=== PATIENT | female | born 1960 | race Caucasian/White ===

== ENCOUNTER 2019-04-27 12:02 | Inpatient (IN) ==
[2019-04-27] MEDS ORDERED: Naloxone 0.4 MG/ML INJ IVP PRN (17:56)
[2019-04-27] MEDS ORDERED: *HR* Warfarin 7.5 MG TABLET PO ONE (18:41)
[2019-04-27] MEDS ORDERED: Ondansetron 4 MG/2 ML VIAL IVP PRN (18:44)
[2019-04-27] MEDS ORDERED: Acetaminophen 325 MG TABLET PO PRN (18:44)
[2019-04-27] MEDS ORDERED: Metoprolol XL (24 HR) Succ 50 MG TAB.ER.24H PO SCH ×2 (18:45→19:00)
[2019-04-27] MEDS ORDERED: Amiodarone Premix 360 MG/200 ML BAG IVC SCH (18:45)
[2019-04-27] MEDS ORDERED: Enoxaparin Weight Dosing SQ SCH (19:00)
[2019-04-27] MEDS ORDERED: Furosemide 40 MG/4 ML VIAL IVP ONE (19:01)
[2019-04-27] MEDS ORDERED: Ipratropium/Albuterol Neb 3 ML ONE (19:27)
[2019-04-27] MEDS ORDERED: Levalbuterol Neb 0.63 MG/3 ML ONE (19:28)
[2019-04-27] MEDS ORDERED: Amiodarone Premix 360 MG/200 ML BAG IVC ONE (19:34)
[2019-04-27 20:25] LABS: Basophils % 0.3 %; Immature Granulocytes % 3.9 % (0-4); Lymphocytes % 5.7 %; Mean Platelet Volume 10.4 fL (9.4-12.4)
[2019-04-27 20:26] LABS: Basophils # 0.1 K/mcL (0.0-0.2); Hematocrit 42.5 % (35.3-44.9); Hemoglobin 14.2 g/dL (11.5-15.4); Lymphocytes # 1.7 K/mcL (0.6-4.6); Mean Corpuscular HGB Conc 33.4 g/dL (31.6-35.5); Mean Corpuscular Hemoglobin 32.2 pg (28.0-33.3); Mean Corpuscular Volume 96.4 fL (83.0-100.0); Monocytes # 1.2 K/mcL (0.0-1.3); Platelet Count 232 K/mcL (140-400); Red Blood Count 4.41 M/mcL (3.82-4.97); Segmented Neutrophils % 86.1 %
[2019-04-27 20:27] LABS: Neutrophils # 26.2 K/mcL (1.6-8.9)
[2019-04-27 20:29] LABS: INR 1.3; Prothrombin Time 14.5 Seconds (9.4-12.1); White Blood Count 30.4 K/mcL (4.3-11.1)
[2019-04-27 20:32] LABS: Activated Partial Thrombo Time 30.6 Seconds (26.0-36.0)
[2019-04-27 20:47] LABS: Platelet Estimate Normal (Normal)
[2019-04-27 20:48] LABS: Albumin 3.4 g/dL (3.5-5.7); Albumin/Globulin Ratio 1.3 (1.1-2.2); Bilirubin,Total 0.7 mg/dL (0.3-1.0); Calcium 9.5 mg/dL (8.6-10.3); Globulin 2.7 g/dL (2.4-3.5); Magnesium 2.2 mg/dL (1.6-2.6); Phosphorous 3.2 mg/dL (2.7-4.5); Potassium 4.7 mEq/L (3.5-5.1); Total Protein 6.1 g/dL (6.4-8.9); Troponin I 0.03 ng/mL (< 0.04)
[2019-04-27] MEDS: Metoprolol XL (24 HR) Succ 50 MG TAB.ER.24H PO SCH (20:57)
[2019-04-27] MEDS: Apixaban 5 MG TABLET PO SCH (20:57)
[2019-04-27 21:08] LABS: Basophils % 0.3 %; Immature Granulocytes % 4.2 % (0-4)
[2019-04-27 21:09] LABS: Basophils # 0.1 K/mcL (0.0-0.2); Hematocrit 41.8 % (35.3-44.9); Hemoglobin 14.2 g/dL (11.5-15.4); Lymphocytes % 6.2 %; Mean Corpuscular Hemoglobin 32.6 pg (28.0-33.3); Mean Corpuscular Volume 95.9 fL (83.0-100.0); Mean Platelet Volume 10.1 fL (9.4-12.4); Monocytes # 1.1 K/mcL (0.0-1.3); Monocytes % 3.4 %; Neutrophils # 27.2 K/mcL (1.6-8.9); Platelet Count 225 K/mcL (140-400); Red Blood Count 4.36 M/mcL (3.82-4.97); Red Cell Distribution Width 12.8 % (11.5-14.5); Segmented Neutrophils % 85.9 %
[2019-04-27 21:15] LABS: White Blood Count 31.7 K/mcL (4.3-11.1)
[2019-04-27 21:39] LABS: Platelet Estimate Normal (Normal)
[2019-04-27] MEDS: Levalbuterol Neb 0.63 MG/3 ML IH SCH (22:33)
[2019-04-27 23:45] LABS: Triiodothyronine (T3) Free 2.99 pg/mL (2.50-3.90)
[2019-04-28] MEDS: Melatonin 3 MG TABLET PO SCH ×2 (00:51→20:02)
[2019-04-28] MEDS: MetroNIDAZOLE 500 MG/100 ML 500 MG/100 ML BAG IVPB SCH ×2 (00:52→10:21)
[2019-04-28 01:25] LABS: Bilirubin,Urine Negative (Negative); Blood,Urine Trace (Negative); Clarity,Urine Clear (Clear); Color,Urine Yellow (Yellow); Glucose,Urine (UA) Normal (Normal); Ketones,Urine Negative (Negative); Leukocyte Esterase,Urine Negative (Negative); Nitrite,Urine Negative (Negative); Protein,Urine Negative (Neg-Trace); Specific Gravity,Urine 1.013 (1.010-1.025); Urobilinogen,Urine Normal (Normal)
[2019-04-28 01:27] LABS: Bacteria,Urine None Seen per hpf (None-Few); Hyaline Casts,Urine None Seen per lpf (None-Few); RBC,Urine 0-3 per hpf (0-3); Squamous Epithelial Cell,Urine Moderate per lpf (None-Few); WBC,Urine 0-3 per hpf (0-3)
[2019-04-28 01:30] LABS: INR 1.5; Prothrombin Time 17.5 Seconds (9.4-12.1)
[2019-04-28 03:59] LABS: Basophils % 0.3 %; Hematocrit 42.3 % (35.3-44.9); Mean Corpuscular Hemoglobin 32.3 pg (28.0-33.3); Red Cell Distribution Width 13.1 % (11.5-14.5)
[2019-04-28 04:01] LABS: Basophils # 0.1 K/mcL (0.0-0.2); Hemoglobin 14.1 g/dL (11.5-15.4); Immature Granulocytes % 4.1 % (0-4); Lymphocytes # 1.9 K/mcL (0.6-4.6); Mean Corpuscular HGB Conc 33.3 g/dL (31.6-35.5); Mean Platelet Volume 10.4 fL (9.4-12.4); Monocytes # 1.1 K/mcL (0.0-1.3); Monocytes % 3.5 %; Platelet Count 229 K/mcL (140-400); Red Blood Count 4.36 M/mcL (3.82-4.97); Segmented Neutrophils % 86.1 %
[2019-04-28 04:02] LABS: Neutrophils # 26.9 K/mcL (1.6-8.9)
[2019-04-28 04:04] LABS: White Blood Count 31.2 K/mcL (4.3-11.1)
[2019-04-28 04:08] LABS: Calcium 9.4 mg/dL (8.6-10.3); Potassium 4.2 mEq/L (3.5-5.1)
[2019-04-28] MEDS: Levalbuterol Neb 0.63 MG/3 ML IH SCH ×4 (04:14→21:34)
[2019-04-28 04:23] LABS: Platelet Estimate Normal (Normal)
[2019-04-28] MEDS ORDERED: Aminoglycoside Consult 1 EACH MC ONE (07:33)
[2019-04-28] MEDS: Apixaban 5 MG TABLET PO SCH ×2 (10:21→20:02)
[2019-04-28] MEDS: Metoprolol XL (24 HR) Succ 50 MG TAB.ER.24H PO SCH ×2 (10:21→20:02)
[2019-04-28] MEDS: Spironolactone 25 MG TABLET PO SCH (11:57)
[2019-04-28] MEDS: Furosemide 40 MG TABLET PO SCH (16:40)
[2019-04-28] MEDS ORDERED: Warfarin perPT PO PRN (18:00)
[2019-04-28] MEDS: Cefepime HCl 1,000 MG in 0.9 % Sodium Chloride Mini Bag 100 ML IVPB SCH (20:09)
[2019-04-29 03:11] LABS: Mean Corpuscular Hemoglobin 32.2 pg (28.0-33.3)
[2019-04-29 03:13] LABS: Hematocrit 42.6 % (35.3-44.9); Hemoglobin 14.3 g/dL (11.5-15.4); Mean Corpuscular HGB Conc 33.6 g/dL (31.6-35.5); Mean Corpuscular Volume 95.9 fL (83.0-100.0); Mean Platelet Volume 10.1 fL (9.4-12.4); Platelet Count 232 K/mcL (140-400); Red Blood Count 4.44 M/mcL (3.82-4.97); Red Cell Distribution Width 13.1 % (11.5-14.5); White Blood Count 28.1 K/mcL (4.3-11.1)
[2019-04-29 03:17] LABS: INR 2.3; Prothrombin Time 25.7 Seconds (9.4-12.1)
[2019-04-29 03:31] LABS: Calcium 8.6 mg/dL (8.6-10.3); Magnesium 2.4 mg/dL (1.6-2.6); Potassium 3.7 mEq/L (3.5-5.1)
[2019-04-29] MEDS: Levalbuterol Neb 0.63 MG/3 ML IH SCH ×4 (03:42→22:50)
[2019-04-29] MEDS: Metoprolol XL (24 HR) Succ 50 MG TAB.ER.24H PO SCH (06:39)
[2019-04-29] MEDS: Apixaban 5 MG TABLET PO SCH ×2 (07:49→21:46)
[2019-04-29] MEDS: Furosemide 40 MG TABLET PO SCH ×2 (07:50→16:02)
[2019-04-29] MEDS: Spironolactone 25 MG TABLET PO SCH (07:50)
[2019-04-29] MEDS ORDERED: Perflutren Lipid Microsphere 1.3 ML in 0.9 % Sodium Chloride 8.7 ML IVP ONE (08:09)
[2019-04-29] MEDS: Cefepime HCl 1,000 MG in 0.9 % Sodium Chloride Mini Bag 100 ML IVPB SCH (09:16)
[2019-04-29] MEDS: levoFLOXacin 750 MG TABLET PO SCH (12:07)
[2019-04-29] MEDS ORDERED: Metoprolol XL (24 HR) Succ 50 MG TAB.ER.24H PO SCH (21:00)
[2019-04-29] MEDS: Melatonin 3 MG TABLET PO SCH (21:46)
[2019-04-30] MEDS: Levalbuterol Neb 0.63 MG/3 ML IH SCH ×2 (03:36→10:00)
[2019-04-30 04:54] LABS: Hematocrit 46.1 % (35.3-44.9); Hemoglobin 15.8 g/dL (11.5-15.4); Mean Corpuscular HGB Conc 34.3 g/dL (31.6-35.5); Mean Corpuscular Hemoglobin 31.9 pg (28.0-33.3); Mean Corpuscular Volume 93.1 fL (83.0-100.0); Mean Platelet Volume 9.9 fL (9.4-12.4); Platelet Count 230 K/mcL (140-400); Red Blood Count 4.95 M/mcL (3.82-4.97); Red Cell Distribution Width 12.8 % (11.5-14.5); White Blood Count 24.7 K/mcL (4.3-11.1)
[2019-04-30 04:58] LABS: INR 1.8; Prothrombin Time 20.7 Seconds (9.4-12.1)
[2019-04-30 05:08] LABS: Calcium 8.6 mg/dL (8.6-10.3); Potassium 3.9 mEq/L (3.5-5.1)
[2019-04-30 07:11] VITALS: BP 115/67
[2019-04-30] MEDS: Spironolactone 25 MG TABLET PO SCH (07:18)
[2019-04-30] MEDS: Furosemide 40 MG TABLET PO SCH (07:18)
[2019-04-30] MEDS: levoFLOXacin 750 MG TABLET PO SCH (07:18)
[2019-04-30] MEDS: Apixaban 5 MG TABLET PO SCH (07:19)
[2019-04-30] MEDS ORDERED: Metoprolol XL (24 HR) Succ 50 MG TAB.ER.24H PO SCH (09:00)
[2019-04-30] MEDS ORDERED: FLU Vac QV 19-20 (6Month+)/PF 0.5 ML SYRINGE IM ONE (10:18)
[2019-04-30] MEDS ORDERED: Metoprolol XL (24 HR) Succ 50 MG TAB.ER.24H PO ONE (13:57)
== END 2019-04-30 12:32 | disposition home or self-care (01) | DRG 720 ==
LOC: SUATTDRO 17:20 → 2NNU 17:20 → INTOOBSV 17:20
PROVIDERS: ADMIT Internal Medicine; ATTEND Internal Medicine